=== PATIENT | female | born 1965 | race Caucasian/White ===

== ENCOUNTER 2017-04-25 06:16 | Day surgery (SDC) | payer OTHER ==
[~2017-04-25] VITALS: Ht 152.4 cm; Wt 66.1 kg
[2017-04-25] MEDS ORDERED: OMEPRAZOLE (06:50)
[2017-04-25] MEDS ORDERED: METFORMIN (06:50)
[2017-04-25] MEDS ORDERED: ENALAPRIL (06:50)
[2017-04-25] MEDS ORDERED: FENTAnyl 50 MCG/ML VIAL ONE (08:00)
[2017-04-25] MEDS ORDERED: MIDAZOLAM 1 MG/ML 2 ML INJ ONE ×2 (08:00)
--- NOTE | 2017-04-25 08:03 | OPPN ---
Date/Time of Note Date/Time of Note DATE: 04/25/17 TIME: 08:02 Operative Report Preoperative Diagnosis Screening Postoperative Diagnosis Diverticulosis of the colon Internal hemorrhoids No colon neoplasm was identified Operation/Procedure Performed Colonoscopy Surgeon see signature line customer marketing assistant None Anesthesia: moderate sedation Estimated blood loss: none Transfusion Required none Specimen None Grafts/Implants none Complications none BRITANY DAVALOS MD Apr 25, 2017 08:03
[2017-04-25 08:16] VITALS: RESP 14
--- NOTE | 2017-04-26 04:31 | GILP ---
DATE OF PROCEDURE: NAME OF PROCEDURE: Colonoscopy. SURGEON: Britany Becker MD PREOPERATIVE DIAGNOSIS: Screening colonoscopy. POSTOPERATIVE DIAGNOSES: 1. Colonoscopy all the way to the cecum. 2. Diverticulosis of the colon. 3. Internal hemorrhoids. 4. No colon neoplasm was identified. INDICATION FOR THE PROCEDURE: Ms. Manisha Jessica is a 51-year-old female patient who was scheduled for screening colonoscopy. The procedure and possible complications were well explained to the patient, she understood and cons ented to the procedure. DESCRIPTION OF PROCEDURE: Under the influence of fentanyl and Versed, the colonoscope was carefully introduced in the rectum and under direct vision, it was advanced all the way to the cecum. FINDINGS: The patient had diverticulosis of the colon. She also had internal hemorrhoids. No colo n neoplasm was identified. She tolerated the procedure very well and there was no complication from the procedure. At the end of the procedure, she was awake with stable vital signs and she was discharged home to the care of h er family. IMPRESSION: 1. Colonoscopy all the way to the cecum. 2. Diverticulosis of the colon. 3. Internal hemorrhoids. 4. No colon neoplasm was identified. PLAN: 1. Next screening colonoscopy in 10 years. 2. High-fiber diet. Dictated By: BRITANY TUTTLE/GUY Conf#: [id number] DID#: [id number]
== END 2017-04-25 17:50 | disposition home or self-care (01) ==
LOC: GIL 06:16
PROVIDERS: ATTEND Internal Medicine Gastroenterology
DX: Z12.11 Encounter for screening for malignant neoplasm of colon (principal); K57.90 Diverticulosis of intestine, part unspecified, without perforation or abscess without bleeding; K64.8 Other hemorrhoids
CPT/HCPCS: 45378; 82962; J2250; J3010; Z7610